=== PATIENT | female | born 1975 | race Caucasian/White ===

== ENCOUNTER 2020-06-14 19:15 | Emergency (ER) | payer OTHER, SELFPAY ==
[2020-06-14 19:33] VITALS: BP 188/99; PULSE 81; RESP 18; TEMP 36.9; O2SAT 97; BMI 38.2
--- NOTE | 2020-06-14 20:07 | ED_ITS ---
HPI - Headache General: Chief Complaint: Headache Stated Complaint: severe headache Time Seen by Provider: 06/14/20 20:07 History of Present Illness: HPI Narrative: Patient is a 44-year-old female comes to the ED with migraine. Patient says she has had a migraine for several straight days. Patient saw PCP last Sunday and they gave her a dose of Phenergan and IM Toradol she says she had no improvement. Then prescribed her some incqiqtisj-[id number]-tnbj and she reports that it does help temporarily. She describes headache as sharp pressure in the head that starts in the back of the head and radiates all over the head. She describes having so me dizziness, nausea and photophobia. Migraine rated a 10 out of 10. Associated symptoms: Reports nausea; Deny chest pain, confusion, fever(s), rash or vomiting Review of Systems Const: Denies: fever(s), chills or fatigue Eyes: Reports: photophobia; Denies: change in vision or eye discomfort ENMT: Denies: throat pain, odynophagia, nasal discharge or nasal congestion Card: Denies: chest pain, palpitations, edema, swelling of feet/ankles, dyspnea on exertion or orthopnea Resp: Denies: dyspnea, productive cough or non-productive cough GI: Reports: nausea; Denies: abdominal pain, vomiting, diarrhea, constipation or hematochezia : Denies: flank pain, dysuria or hematuria Musc: Denies: neck pain, back pain or extremity swelling Skin/Breast: Denies: rash or new lesions Neuro: Reports: headache(s) and dizziness; Denies: numbness in extremities, weakness in extremities or confusion Physical Exam Const: COMMON NORMALS: no acute distress, patient oriented x3 and alert GENERAL APPEARANCE: cooperative and comfortable HENMT: COMMON NORMALS: normocephalic HEAD & SCALP: normocephalic MOUTH: Normal oral and palatal mucosa present THROAT: posterior oropharynx normal and uvula midline Eye: COMMON NORMALS: Equal, round and reactive pupils present, EOMs intact bilaterally, conjunctivae normal and normal visual olivera by confrontation CONJUNCTIVA: Yes conjunctivae normal PUPIL: Yes Equal, round and reactive pupils present Neck/C-Spine: COMMON NORMALS: supple GENERAL: Yes normal visual inspection Resp: COMMON NORMALS: normal respiratory effort, No retractions, No use of accessory muscles and clear to auscultation bilaterally AUSCULTATION: clear to auscultation bilaterally Cardio: COMMON NORMALS: regular rate, regular rhythm, S1 normal heart sound present, S2 normal heart sound present, No gallops present (Cardio), No clicks present (Cardio), No murmurs present (Cardio) and Peripheral pulses 2+ throughout RATE: regular rate RHYTHM: regular rhythm HEART SOUNDS: S1 normal heart sound present and S2 normal heart sound present PERIPHERAL PULSES: Peripheral pulses 2+ throughout GI: COMMON NORMALS: Normal to inspection, nondistended, normoactive bowel sounds present, Soft to palpation, non-tender and no masses PALPATION: Yes Soft to palpation : COMMON NORMALS: Yes no CVA tenderness BLADDER/KIDNEY EXAM: Yes no CVA tenderness Back/Pelvis: COMMON NORMALS: no CVA tenderness Extremity: COMMON NORMALS: normal to inspection and no pedal edema Neuro: COMMON NORMALS: patient oriented x3, CN's II-XII intact bilaterally, moves all extremities, no focal motor deficits and no sensory deficits noted SENSORIUM/ORIENTATION: Yes alert COORDINATION/BALANCE: iufnpv-em-sgsh test normal and gdrq-gc-faia test normal SPEECH: speech normal SENSORY EXAM: Yes extremities (intact) MOTOR EXAM: 5/5 motor strength present throughout COORDINATION: gpwnms-ti-drvd test normal and rsqo-an-yxis test normal Skin: GENERAL SKIN EXAM: dry skin Course Reevaluation(s): Reevaluation #1: Check in with patient after she was given meds. She says her migraine is went down to a 3 now. Time: 22:56 Vital Signs: Vital signs: Vital Signs Temperature 98.4 F 06/14/20 19:33 Pulse Rate 78 06/14/20 23:15 Respiratory Rate 18 06/14/20 23:15 Blood Pressure 168/87 06/14/20 23:15 Pulse Oximetry 100 06/14/20 23:15 MDM - Headache MDM Narrative: Medical decision making narrative: Patient is a 44-year-old female comes to the ED with migraine. Neuro exam normal. CT of head showed no acute findings. Patient given IV fluids, Toradol, Decadron, Reglan and Benadryl. Her migraine improved from a 10 to a 3 she was ready to be discharged. Patient told to follow-up with PCP in the next 7 to 10 days for reevaluation. Return to ED precautions given. Patient understood agree with plan. Imaging Data^: CT Head: Attestation: I personally reviewed and interpreted this imaging study as follows: Radiologist's impression: [address] [address] [address] Scan Report Signed Patient: Molly Mcfarlane Unit #: [id number] : 1975 Age/Sex: 44 / F ADM Date: 06/14/20 Loc: ER Room/Bed: Attending Dr: Ordering Provider/Ordering MD: Meet Green Date of Service: 06/14/20 Procedure(s): CT head wo con* [id number] Accession Number(s): [id number] Report Number: [id number] PROCEDURE INFORMATION: Exam: CT Head Without Contrast Exam date and time: 06/14/2020 8:32 PM Age: 44 years old Clinical indication: Pain; Dizziness and visual disturbance; Headache; Additional info: Migraine for 7 days TECHNIQUE: Imaging protocol: Computed tomography of the head without contrast. Radiation optimization: All CT scans at this facility use at least one of these dose optimization techniques: automated exposure control; mA and/or kV adjustment per patient size (includes targeted exams where dose is matched to clinical indication); or iterative reconstruction. COMPARISON: No relevant prior studies available. RADIATION DOSE METRICS: Total DLP (mGy-cm): 795.44 FINDINGS: Brain: Normal. No hemorrhage. Unremarkable white matter. No mass effect. Cerebral ventricles: No ventriculomegaly. Bones/joints: Unremarkable. No acute fracture. Paranasal sinuses: Visualized sinuses are unremarkable. No fluid levels. Mastoid air cells: Visualized mastoid air cells are well aerated. Soft tissues: Unremarkable. CT/CT head wo con* [id number] IMPRESSION: No acute intracranial abnormality. Radiation Dose CTDIVOL = (mGy): DLP = 795.44 (mGy-cm) Dictated By: Andreas Goldberg Signed By: Andreas Goldberg Signed Date/Time: 06/14/202113 DD/ 11 Discharge Plan Discharge Patient Disposition: Home Clinical Impression: Migraine Qualifiers: Migraine type: without aura Status migrainosus presence: with status migrainosus Intractability: not intractable Qualified Code(s): G43.001 - Migr reilly without aura, not intractable, with status migrainosus Condition: Stable Prescriptions: No Action buspirone 15 mg Tablet 15 mg PO BID RF: 0 amitriptyline 25 mg Tablet 25 mg PO DAILY RF: 0 lorazepam 1 mg Tablet 1 mg PO TID PRN (Reason: Agitation) RF: 0 Esgic 50-325-40 mg Tablet 1 - 2 tab PO Q4H PRN (Reason: Headache) RF: 0 Discharge Orders: Discharge Order (Routine); Ordered 06/14/20 Ordered By: Meet Green Discharge Diet: Regular Discharge Activity: Resume usual activity Patient Instructions: Migraine Headache (ED) Activity Restrictions/Additional Instructions: Follow-up with medical provider as directed in 7 to 10 days. Take previously prescribed medication for any reoccurring headache. Return to the ER or your medical provider if condition worsens. Please read and understand discharge instructions. If any questions, please ask. Coding Level of Care Code ED Customs Entry Writer for [place] Fwd Exam Comprehensive
--- NOTE | 2020-06-14 20:22 | CTR_ITS ---
PROCEDURE INFORMATION: Exam: CT Head Without Contrast Exam date and time: 06/14/2020 8:32 PM Age: 44 years old Clinical indication: Pain; Dizziness and visual disturbance; Headache; Additional info: Migraine for 7 days TECHNIQUE: Imaging protocol: Computed tomography of the head without contrast. Radiation optimization: All CT scans at this facility use at least one of these dose optimization techniques: automated exposure control; mA and/or kV adjustment per patient size (includes targeted exams where dose is matched to clinical indication); or iterative reconstruction. COMPARISON: No relevant prior studies available. RADIATION DOSE METRICS: Total DLP (mGy-cm): 795.44 FINDINGS: Brain: Normal. No hemorrhage. Unremarkable white matter. No mass effect. Cerebral ventricles: No ventriculomegaly. Bones/joints: Unremarkable. No acute fracture. Paranasal sinuses: Visualized sinuses are unremarkable. No fluid levels. Mastoid air cells: Visualized mastoid air cells are well aerated. Soft tissues: Unremarkable. CT/CT head wo con* [id number] IMPRESSION: No acute intracranial abnormality. Radiation Dose CTDIVOL = (mGy): DLP = 795.44 (mGy-cm)
[2020-06-14] MEDS: dexamethasone 4 mg/mL INJ 10 MG IVP (22:16)
[2020-06-14] MEDS: diphenhydrAMINE 50 mg/mL SDV 1mL 25 MG IVP (22:17)
[2020-06-14] MEDS: metoclopramide 5 mg/mL SDV 2 mL 10 MG IVP (22:17)
[2020-06-14] MEDS: ketorolac 30 mg/mL INJ IVP (22:17)
[2020-06-14] MEDS: sodium chloride 0.9% 500 ML IV (22:18)
[2020-06-14 22:29] VITALS: BP 178/94; PULSE 87; RESP 14; O2SAT 99
[2020-06-14 23:15] VITALS: BP 168/87; PULSE 78; RESP 18; O2SAT 100
== END 2020-06-14 23:17 | disposition home or self-care (01) ==
PROVIDERS: Emergency Provider Physician Assistant
DX: G43.001 Migraine without aura, not intractable, with status migrainosus (principal)
CPT/HCPCS: 12345; 70450; 96361; 96374; 96375; 99283; J1100; J1200; J1885; J2765; J7040

== ENCOUNTER 2021-08-11 10:34 | Emergency (ER) | payer BC, SELFPAY ==
[2021-08-11 10:53] VITALS: BP 217/120; PULSE 69; RESP 16; TEMP 36.4; O2SAT 95; BMI 38.2
--- NOTE | 2021-08-11 11:06 | ECG_ITS ---
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 Measurements Intervals [place] Rate: 62 P: 53 DE: 171 QRS: 37 QRSD: 92 T: 42 QT: 383 QTc: 391 Interpretive Statements SINUS RHYTHM INTERPRETATION BASED ON A DEFAULT AGE OF 40 YEARS No previous ECG available for comparison Electronically Signed On 08-11-2021 20:29:05 DEVELOPER [employer] by Sraavni Oneil M.D. [id number] f
--- NOTE | 2021-08-11 11:06 | XR_ITS ---
WS: [id number] Portable AP upright chest, 08/11/2021 Clinical Data: chest pain Comparison: None. Findings: No nodules, masses or effusions are seen. The heart is slightly enlarged. The pulmonary vas cularity is not increased. No pneumonia or pneumothorax is seen. XR/XR chest 1V portable [id number] Impression: Cardiomegaly.
--- NOTE | 2021-08-11 11:06 | W.ED.CHESTPA ---
HPI - Chest Pain General: Chief Complaint: Chest Pain Stated Complaint: Dry cough, uncomfortable chest, on Heart meds Time Seen by Provider: 08/11/21 10:40 History of Present Illness: HPI narrative: 45-year-old female presents emergency room complaining of dry nonproductive cough chest discomfort and tightness pressure with dizziness for the last 4 days pain radiates up into the right side of the neck. Cough is nonproductive she has not had any anosmia or diarrhea she has had a lot of myalgias low-grade subjective fever. Not previously diagnosed with COVID nor has she been vaccinated. Her was tested with a rapid antigen which was negative but also has symptoms. Patient reports progressively worsening dyspnea with any exertion over the last 4 days. MD complaint: chest pain Pertinent past history: other (Hypertension) Onset (ago): day(s) (4) Timing of current episode: constant Prior episodes: Yes Onset: during rest Pain location: substernal Pain radiation: neck (Right side) Severity: mild Quality: aching and heaviness Relieving factors: nothing Exacerbating factors: nothing Associated symptoms: Reports dyspnea; Deny abdominal pain, diaphoresis, fever(s), leg edema, nausea, palpitations, sense of impending doom, syncope or vomiting Treatment prior to arrival: none Review of Systems Const: Denies: fever(s) or diaphoresis ENMT: Denies: throat pain, ear or mastoid pain, nasal discharge or nasal congestion Card: Denies: palpitations or syncope Resp: Reports: dyspnea GI: Denies: abdominal pain, nausea or vomiting : Denies: flank pain, difficulty voiding, dysuria, urinary frequency or urinary urgency Skin/Breast: Denies: rash or pruritus Physical Exam Const: GENERAL APPEARANCE: cooperative and comfortable ORIENTATION/CONSCIOUSNESS: Yes awake, Yes oriented to person, Yes oriented to place and Yes oriented to time HENMT: COMMON NORMALS: normocephalic, atraumatic, hearing grossly normal bilaterally and external ears normal HEAD & SCALP: normocephalic and atraumatic EXTERNAL EAR: Yes external ears normal Neck/C-Spine: COMMON NORMALS: no JVD Lymph: LYMPHATIC: no lymphadenopathy noted and no lymphedema noted Resp: COMMON NORMALS: normal respiratory effort, No retractions, No use of accessory muscles and clear to auscultation bilaterally AUSCULTATION: clear to auscultation bilaterally Cardio: COMMON NORMALS: no JVD, regular rate, regular rhythm and No murmurs present (Cardio) RATE: regular rate RHYTHM: regular rhythm GI: COMMON NORMALS: Soft to palpation and No hepatosplenomegaly present AUSCULTATION: Yes normoactive bowel sounds PALPATION: Yes Soft to palpation, No Tenderness to palpation present (GI), No Guarding due to palpation present (GI) and Yes No hepatosplenomegaly present Extremity: COMMON NORMALS: normal to inspection, capillary refill normal, no clubbing, cyanosis or edema, no calf tenderness and no pedal edema Neuro: SENSORIUM/ORIENTATION: Yes oriented to person, Yes oriented to place and Yes oriented to time Skin: COMMON NORMALS: no rashes or lesions noted GENERAL SKIN EXAM: no rashes or lesions noted Course Vital Signs: Vital signs: Vital Signs Temperature 97.5 F L 08/11/21 10:53 Pulse Rate 68 08/11/21 13:35 Respiratory Rate 17 08/11/21 13:35 Blood Pressure 179/101 08/11/21 13:35 Pulse Oximetry 97 08/11/21 13:35 MDM - Chest Pain MDM Narrative: Medical decision making narrative: Clinically suspect COVID-19. COVID test at this time is pending. If positive will refer for monoclonal antibodies but otherwise would not admit. She would only need supportive cares. Will discharge home and contact her with the result. Lab Data: Labs: Lab Results 08/11/21 08/11/21 08/11/21 12:16 12:16 12:16 WBC 9.0 10^3/uL 10^3/ uL (4.0-10.0) RBC 5.18 10^6/uL 10^6 /uL (4.1-5.3) Hgb 15.9 g/dL H g/dL (11.5-15.3) Hct 47.3 % H % (37.0-47.0) MCV 91.3 fl fl (81-99) MCH 30.7 pg pg (28.0-34.0) MCHC 33.6 g/dL g/dL (30.0-36.0) RDW 12.4 % % (12.1-15.1) Plt Count 315 10^3/cmm 10^3 /cmm (130-400) MPV 9.8 fL fL (7.4-10.4) Neut % (Auto) 65.7 % % Lymph % (Auto) 24.7 % % [place] % (Auto) 6.7 % % Eos % (Auto) 1.8 % % Baso % (Auto) 0.7 % % Neut # (Auto) 5.88 10^3/uL 10^3 /uL (1.8-7.7) Lymph # (Auto) 2.2 10^3/uL 10^3/ uL (0.8-4.8) [place] # (Auto) 0.6 10^3/uL 10^3/ uL (0.2-0.9) Eos # (Auto) 0.2 10^3/uL 10^3/ uL (0.0-0.8) Baso # (Auto) 0.1 10^3/uL 10^3/ uL (0.0-0.1) Nucleated RBC % (a uto) 0 % % Nucleated RBCs # 0.0 /100WBC /100W BC Sodium 139 mmol/L mmol/L (136-145) Potassium 4.4 mmol/L mmol/L (3.5-5.1) Chloride 101 mmol/L mmol/L (98-107) Carbon Dioxide 24 mmol/L mmol/L (22-29) Anion Gap 18.4 (5-19) BUN 10 mg/dL mg/dL (6-20) Creatinine 0.5 mg/dL mg/dL (0.5-0.9) GFR Calculation 132.8 mL/min H mL /min (90-130) Glucose 79 mg/dL mg/dL (65-115) Calculated Osmolal ity 286 mOsm/kg mOsm/ kg (285-295) Calcium 10.0 mg/dL mg/dL (8.5-10.5) Total Bilirubin 0.4 mg/dL mg/dL (0.15-1.2) AST 14 U/L U/L (0-32) ALT 14 U/L U/L (0-33) Alkaline Phosphata se 95 IU/L IU/L (35-105) Troponin T Baselin e 6 ng/L ng/L (0-10) Total Protein 7.6 g/dL g/dL (6.6-8.7) Albumin 4.7 g/dL g/dL (3.5-5.2) Globulin 2.9 g/dL g/dL (1.3-4.6) Discharge Plan Discharge Patient Disposition: Home Clinical Impression: Clinical diagnosis of COVID-19, HTN (hypertension) Condition: Stable Prescriptions: Changed losartan 50 mg Tablet 100 mg PO DAILY Qty: 0 RF: 0 No Action amitriptyline 25 mg Tablet 25 - 75 mg PO BEDTIME RF: 0 metoprolol tartrate 100 mg Tablet 100 mg PO BID RF: 0 Discharge Orders: Discharge ED (Routine); Ordered 08/11/21 Ordered By: Fredy Rowe Discharge Diet: Usual diet Discharge Activity: Resume usual activity Patient Instructions: Opioid Safety Activity Restrictions/Additional Instructions: We will contact you with the COVID result. Recommend remaining ending self quarantine until results have returned. If any worsening or change symptoms return. If you are positive you may be a candidate for monoclonal antibodies. Coding Level of Care Code ED Service Control Operator for [place] Mast Exam Comprehensive
[2021-08-11 11:59] VITALS: BP 165/116; PULSE 68; RESP 16; O2SAT 98
[2021-08-11 12:00] VITALS: BP 165/116; PULSE 63; O2SAT 99
[2021-08-11] MEDS: aspirin 81 mg Chew Tablet 324 MG PO (12:01)
[2021-08-11 12:35] LABS: Basophils # 0.1 10^3/uL (0.0-0.1); Basophils % 0.7 %; Eosinophils # 0.2 10^3/uL (0.0-0.8); Eosinophils % 1.8 %; Hematocrit 47.3 % (37.0-47.0); Hemoglobin 15.9 g/dL (11.5-15.3); Lymphocytes # 2.2 10^3/uL (0.8-4.8); Lymphocytes % 24.7 %; Mean Corpuscular HGB Conc 33.6 g/dL (30.0-36.0); Mean Corpuscular Hemoglobin 30.7 pg (28.0-34.0); Mean Corpuscular Volume 91.3 fl (81-99); Mean Platelet Volume 9.8 fL (7.4-10.4); Monocytes # 0.6 10^3/uL (0.2-0.9); Monocytes % 6.7 %; Neutrophils # 5.88 10^3/uL (1.8-7.7); Neutrophils % 65.7 %; Nucleated Red Blood Cells % 0 %; Platelet Count 315 10^3/cmm (130-400); Red Blood Count 5.18 10^6/uL (4.1-5.3); Red Cell Distribution Width 12.4 % (12.1-15.1)
[2021-08-11 12:55] VITALS: BP 165/113; PULSE 66; RESP 17; O2SAT 98
[2021-08-11 12:58] LABS: Alanine Aminotransferase 14 U/L (0-33); Albumin Level 4.7 g/dL (3.5-5.2); Alkaline Phosphatase 95 IU/L (35-105); Anion Gap 18.4 (5-19); Aspartate Amino Transferase 14 U/L (0-32); Blood Urea Nitrogen 10 mg/dL (6-20); Carbon Dioxide 24 mmol/L (22-29); Chloride 101 mmol/L (98-107); Globulin 2.9 g/dL (1.3-4.6); Glomerular Filtration Rate 132.8 mL/min (90-130); Glucose 79 mg/dL (65-115); Osmolality Calculated 286 mOsm/kg (285-295); Potassium 4.4 mmol/L (3.5-5.1); Sodium 139 mmol/L (136-145); Total Bilirubin 0.4 mg/dL (0.15-1.2); Total Protein 7.6 g/dL (6.6-8.7)
[2021-08-11 13:00] LABS: Troponin(5th) Baseline 6 ng/L (0-10)
[2021-08-11 13:35] VITALS: BP 179/101; PULSE 68; RESP 17; O2SAT 97
[2021-08-11 14:22] LABS: Adenovirus Not Detected (NOT DETECT); Chlamydia Pneumoniae Not Detected (NOT DETECT); Coronavirus 229E,HKU1,NL63,OC4 Not Detected (NOT DETECT); Human Metapneumovirus Not Detected (NOT DETECT); Human Rhinovirus/Enterovirus Not Detected (NOT DETECT); Influenza A Not Detected (NOT DETECT); Influenza A H1 Not Detected (NOT DETECT); Influenza A H1-2009 Not Detected (NOT DETECT); Influenza A H3 Not Detected (NOT DETECT); Influenza B Not Detected (NOT DETECT); Mycoplasma Pneumoniae Not Detected (NOT DETECT); Parainfluenza Virus Type 1 Not Detected (NOT DETECT); Parainfluenza Virus Type 2 Not Detected (NOT DETECT); Parainfluenza Virus Type 3 Not Detected (NOT DETECT); Parainfluenza Virus Type 4 Not Detected (NOT DETECT); Respiratory Syncytial Virus A Not Detected (NOT DETECT); Respiratory Syncytial Virus B Not Detected (NOT DETECT); SARS-COV-2 Not Detected (NOT DETECT)
== END 2021-08-11 13:39 | disposition home or self-care (01) ==
PROVIDERS: Emergency Provider Family Medicine
DX: U07.1 COVID-19 (principal); I10 Essential (primary) hypertension
CPT/HCPCS: 71045; 80053; 84484; 85025; 87635; 93005; 99283

== ENCOUNTER 2021-11-09 08:00 | Outpatient (CLI) | payer BC, SELFPAY | END 2021-11-09 08:01 | disposition home or self-care (01) | LOC: SLEEP 11-10 09:38 | PROVIDERS: Visit Provider Family Medicine | DX: G47.33 Obstructive sleep apnea (adult) (pediatric) (principal); I10 Essential (primary) hypertension; G43.909 Migraine, unspecified, not intractable, without status migrainosus | CPT/HCPCS: G0399 ==

== ENCOUNTER 2022-10-11 14:44 | Emergency (ER) | payer OTHER, SELFPAY ==
[2022-10-11 14:53] VITALS: BP 174/125; PULSE 69; RESP 22; TEMP 36.7; O2SAT 95; BMI 41.5
--- NOTE | 2022-10-11 15:35 | W.ED.BACK ---
HPI - Back Pain/Injury General: Chief Complaint: Back Pain/Injury Stated Complaint: back pain Time Seen by Provider: 10/11/22 15:35 Source: patient Mode of arrival: ambulatory Limitations: no limitations History of Present Illness: Patient is a 46-year-old female presents to ED today with a complaint of lower back pain over the past 5 days. Patient states 5 days ago she was kicking warms off of her porch when she accidentally slipped. Patient states she did not fall but rather caught herself feels like she pulled/strained something in her back. Pain seems to radiate across to her back and she does have some discomfort going down the posterior aspect of her bilateral legs. She denies saddle anesthesia or bowel/bladder attention/incontinence. No other injuries sustained during the slip. MD elicited complaint: back pain and back injury Onset (ago): day(s) Timing: constant Severity: severe Pain scale (0-10): 9 Similar Symptoms Previously: No Quality: dull and aching Location: lumbar spine, right lower back and left lower back Radiation: buttocks, left upper leg and right upper leg Exacerbating factors: movement and walking Relieving factors: none Context: turning/twisting Associated symptoms: Reports no associated symptoms and difficulty walking (secondary to back discomfort); Deny abdominal pain, chills, dysuria, fatigue, fever(s) or hematuria Work related injury: No Review of Systems Const: Denies: fever(s), chills, body aches, fatigue or malaise Card: Denies: chest pain Resp: Denies: dyspnea GI: Denies: abdominal pain : Denies: flank pain, dysuria or hematuria Musc: Reports: back pain; Denies: neck pain, extremity pain, extremity swelling, joint pain or joint swelling Skin/Breast: Denies: rash Neuro: Reports: difficulty walking (secondary to back discomfort); Denies: headache(s), numbness in extremities, weakness in extremities or sensory changes Physical Exam Const: COMMON NORMALS: no acute distress, patient oriented x3, no limitations and alert GENERAL APPEARANCE: cooperative NUTRITIONAL APPEARANCE: obese morbidly obese ORIENTATION/CONSCIOUSNESS: Yes awake, Yes oriented to person, Yes oriented to place and Yes oriented to time GI: COMMON NORMALS: Normal to inspection, nondistended, normoactive bowel sounds present, Soft to palpation and non-tender PALPATION: Yes Soft to palpation : COMMON NORMALS: Yes no CVA tenderness BLADDER/KIDNEY EXAM: Yes no CVA tenderness Back/Pelvis: COMMON NORMALS: no CVA tenderness THORACIC SPINE/UPPER BACK: Yes normal to inspection, No thoracic spinal tenderness, No paraspinal muscle tenderness and No paraspinal muscle spasm LUMBAR SPINE/LOWER BACK: Yes ROM limited, Yes pain with ROM, Yes lumbar spinal tenderness, Yes paraspinal muscle tenderness, No paraspinal muscle spasm and Yes straight leg raise negative bilaterally PELVIS: Yes buttock abnormal Buttock abnormal laterality: bilateral Bilateral buttock abnormal details: tenderness and Yes sciatic notch tenderness SACROILIAC JOINTS: Yes SI joint(s) abnormal SI joint details: tender to palpation SACRUM: no tenderness COCCYX: no tenderness Extremity: COMMON NORMALS: normal to inspection, full ROM, capillary refill normal, no joint enlargement, no clubbing, cyanosis or edema, no calf tenderness and no pedal edema GENERAL: Yes normal exam except as noted Neuro: COMMON NORMALS: patient oriented x3, moves all extremities, no focal motor deficits and no sensory deficits noted SENSORIUM/ORIENTATION: Yes alert, Yes oriented to person, Yes oriented to place and Yes oriented to time MOTOR EXAM: 5/5 motor strength present throughout DEEP TENDON REFLEXES: Right patellar reflex intensity grade: 2+ and Left patellar reflex intensity grade: 2+ Course Vital Signs: Vital signs: Vital Signs Temperature 98.1 F 10/11/22 14:53 Pulse Rate 69 10/11/22 14:53 Respiratory Rate 22 H 10/11/22 14:53 Blood Pressure 174/125 10/11/22 14:53 Pulse Oximetry 95 10/11/22 14:53 Oxygen Delivery Me thod 10/11/22 14:53 MDM - Back Pain/Injury Medical Decision Making Patient reports pain has vastly improved with medications given here. She was ambulated and did well without any form of assistance. Patient will be placed on pain medications, steroids, anti-inflammatories, muscle relaxers. Recommend she follow-up with primary care early next week if symptoms do not seem to be improving. Return ED precautions given. Labs Radiology Impressions Lumbar Spine X-Ray 10/11/22 15:40 IMPRESSION: Mild-moderate degenerative changes L5-S1 and right SI joint. Discharge Plan Discharge Patient Disposition: Home Clinical Impression: Strain of fascia of lower back Condition: Stable Prescriptions: New methocarbamol 500 mg tablet 1,000 mg PO Q8H Qty: 30 0RF ibuprofen 800 mg tablet 800 mg PO Q8H PRN (Reason: pain) Qty: 20 0RF hydrocodone-acetaminophen 5-325 mg tablet 1 tab PO Q6H PRN (Reason: pain) Qty: 14 0RF Medrol (Hany) 4 mg tablets,dose pack See Rx Instructions .ROUTE .COMPLEX Qty: 21 0RF Rx Instructions: orally per package directions No Action meclizine 25 mg tablet 25 mg PO QID PRN (Reason: dizziness) Qty: 30 1RF doxycycline hyclate 100 mg capsule 100 mg PO BID 30 Days Qty: 60 1RF Rx Instructions: Take one capsule twice a day for one month. metronidazole [Metrogel] 1 % gel 1 applic topical DAILY Qty: 60 1RF Rx Instructions: Apply to affected areas on the face once daily. ketoconazole 2 % shampoo 1 applic topical ONCE Qty: 120 6RF Rx Instructions: Lather into scalp 2-3 times weekly. Allow to sit on scalp 5 minutes before rinsing. losartan 100 mg tablet 100 mg PO DAILY Qty: 90 3RF amitriptyline 25 mg tablet See Rx Instructions .ROUTE .COMPLEX Qty: 90 5RF Dose Instruction: TAKE 1 TO 3 TABLETS BY MOUTH AT BEDTIME Rx Instructions: TAKE 1 TO 3 TABLETS BY MOUTH AT BEDTIME metoprolol tartrate 100 mg tablet See Rx Instructions .ROUTE .COMPLEX Qty: 180 3RF Dose Instruction: TAKE 1 TABLET BY MOUTH TWO TIMES DAILY Rx Instructions: TAKE 1 TABLET BY MOUTH TWO TIMES DAILY Discharge Orders: Discharge ED (Routine); Ordered 10/11/22 Ordered By: Ashley Blood Referrals: Heri Carranza DO [Primary Care Provider] - Patient Instructions: Low Back Strain (ED), Acute Low Back Pain (ED), Opioid Safety, Pain Management Activity Restrictions/Additional Instructions: Please follow-up with your primary care provider early next week if pain persists or does not seem to be improving with the medications prescribed. Coding Level of Care Code ED Director Of Volunteer Services for [place] Mast
--- NOTE | 2022-10-11 15:40 | XRR_ITS ---
PROCEDURE INFORMATION: Exam: XR Lumbosacral Spine Exam date and time: 10/11/2022 3:55 PM Age: 46 years old Clinical indication: Injury or trauma; Fall; Blunt trauma (contusions or hematomas); Additional info: Back injury/pain TECHNIQUE: Imaging protocol: Radiologic exam of the lumbosacral spine. Views: 2 or 3 views. COMPARISON: No relevant prior studies available. FINDINGS: Bones/joints: Lumbar curvature and alignment is unremarkable. Mild-moderate degenerative changes L5-S1 with disc space narrowing, endplate sclerosis and facet arthrosis. Remaining disc heights maintained. No fractures spondylolisthesis. Asymmetric degenerative changes right SI joint. Soft tissues: Unremarkable. XR/XR lumbar spine 2-3V* [id number] IMPRESSION: Mild-moderate degenerative changes L5-S1 and right SI joint.
[2022-10-11] MEDS: orphenadrine 30 mg/mL Inj 2 mL 60 MG IV (16:22)
[2022-10-11] MEDS: morphine 4 mg/mL SDV 1 mL IVP (16:22)
[2022-10-11] MEDS: dexamethasone 10 mg/mL INJ 8 MG IV (16:22)
[2022-10-11] MEDS: ketorolac 60 mg/2 mL INJ IVP (16:22)
== END 2022-10-11 17:00 | disposition home or self-care (01) ==
PROVIDERS: Emergency Provider Physician Assistant; PCP Family Medicine
DX: S39.012A Strain of muscle, fascia and tendon of lower back, initial encounter (principal); W18.40XA Slipping, tripping and stumbling without falling, unspecified, initial encounter
CPT/HCPCS: 72100; 96374; 96375; 99284; J1100; J1885; J2270; J2360

== ENCOUNTER → 2023-09-06 09:54 | Outpatient (BNVA) | payer OTHER, SELFPAY | PROVIDERS: PCP Family Medicine; Visit Provider Clinical Nurse Specialist Adult Health | DX: J06.9 Acute upper respiratory infection, unspecified (principal) | CPT/HCPCS: 87400; 87426; 87880 ==

== ENCOUNTER → 2024-02-04 10:31 | Outpatient (BNVA) | payer OTHER, SELFPAY | PROVIDERS: PCP Family Medicine; Visit Provider Family Medicine | DX: Z00.00 Encounter for general adult medical examination without abnormal findings (principal); E03.9 Hypothyroidism, unspecified; I10 Essential (primary) hypertension; L98.9 Disorder of the skin and subcutaneous tissue, unspecified; Z13.6 Encounter for screening for cardiovascular disorders; E55.9 Vitamin D deficiency, unspecified | CPT/HCPCS: 80053; 80061; 82607; 82652; 83036; 84443; 85025 ==

== ENCOUNTER → 2024-08-28 13:54 | Outpatient (BNVA) | payer OTHER, SELFPAY | PROVIDERS: PCP Family Medicine; Visit Provider Family Medicine | DX: J11.1 Influenza due to unidentified influenza virus with other respiratory manifestations (principal) | CPT/HCPCS: 87400 ==

== ENCOUNTER → 2024-10-02 08:42 | Outpatient (BNVA) | payer OTHER, SELFPAY | PROVIDERS: PCP Family Medicine; Visit Provider Family Medicine | DX: Z91.018 Allergy to other foods (principal); F41.9 Anxiety disorder, unspecified; R68.82 Decreased libido; R53.83 Other fatigue; R23.2 Flushing; J11.1 Influenza due to unidentified influenza virus with other respiratory manifestations; I10 Essential (primary) hypertension; N18.9 Chronic kidney disease, unspecified | CPT/HCPCS: 80053; 80061; 82607; 82785; 83001; 83002; 84443; 85018; 85025; 86001; 86003 ==